=== PATIENT | female | born 1975 | race American Indian/Alaskan Native ===

== ENCOUNTER 2018-11-25 06:32 | Day surgery (SDC) | payer MEDICAID, OTHER ==
[~2018-11-25 06:32] MED LIST: Lactated Ringers 1,000 ML IV SCH; ceFAZolin 2 GM in Premix Bag 1 BAG IV ONE
--- NOTE | 2018-11-25 07:21 | PCM.PREANE ---
Preanesthetic Assessment - Anesthesia/Transfusion/Family Hx Anesthesia History: Prior Anesthesia Without Reaction (endo sedation only, no hx of GA) Family History of Anesthesia Reaction: No Transfusion History: No Prior Transfusion(s) - Review of Systems General: No Symptoms Pulmonary: No Symptoms Cardiovascular: No Symptoms Gastrointestinal: No Symptoms Neurological: No Symptoms - Physical Assessment NPO Status Date: 11/24/18 NPO Status Time: 23:30 Vital Signs: Last Vital Signs Temp Pulse 70 11/25/18 06:38 Resp 18 11/25/18 06:38 BP 149/96 H 11/25/18 06:38 Pulse Ox 100 11/25/18 06:38 Height: 5 ft 4 in Weight: 117.934 kg ASA Class: 2 Mental Status: Alert & Oriented x3 Airway Class: Mallampati = 2 Dentition: Reports: Normal Dentition ROM/Head Extension: Full Lungs: Clear to Auscultation, Normal Respiratory Effort Cardiovascular: Regular Rate, Regular Rhythm - Lab Values: Laboratory Last Values POC Glucose 137 mg/dL (60-110) H 11/25/18 06:58 Urine HCG, Qual NEGATIVE (NEGATIVE) 11/25/18 06:40 - Allergies Allergies/Adverse Reactions: Allergies Allergy/AdvReac Type Severity Reaction Status Date / Time almond oil Allergy Hives Verified 11/22/18 14:16 aspirin Allergy Rash Verified 11/22/18 14:16 Latex, Natural Rubber Allergy Rash Verified 11/22/18 14:16 - Blood Blood Available: No - Anesthesia Plan Pre-Op Medication Ordered: None - Acknowledgements Anesthesia Type Planned: General Anesthesia Pt an Appropriate Candidate for the Planned Anesthesia: Yes Alternatives and Risks of Anesthesia Discussed w Pt/Guardian: Yes Pt/Guardian Understands and Agrees with Anesthesia Plan: Yes Additional Comments: PMH: MO, bmi=45 (has lost 150 # in last 2 years, DM2 glucose 137 today, HbAic down from 9.9 to mid 7s, MEETA - uses CPAP 5-7 hours per night, every night, gerd , hx of anemia, hx of migraine. Has a tear of R rotator cuff. painful when she lays on her R side. Careful positioning. PLAN: get PreAnesthesia Questionnaire HEENT History: Reports: Allergic Rhinitis Other HEENT History: wears glasses, contacts Cardiovascular History: Reports: High Cholesterol, Other (See Below) Other Cardiovascular History: takes Losartan to "protect kidneys", has been off of the HCTZ for awhile- may restart in the future Respiratory History: Reports: Sleep Apnea Other Respiratory History: uses CPAP Gastrointestinal History: Reports: GERD, Hemorrhoids Musculoskeletal History: Reports: Fracture Other Musculoskeletal History: jx of fx foot Neurological History: Reports: Concussion, Other (See Below) Other Neuro History: hx of motion sickness and claustrophobia Psychiatric History: Reports: Other (See Below) Other Psychiatric History: hx of depression in the past- no medications at this time Endocrine/Metabolic History: Reports: Diabetes, Type II, Obesity/BMI 30+ Hematologic History: Reports: Anemia - Past Surgical History GI Surgical History: Reports: Colonoscopy, EGD - SUBSTANCE USE Smoking Status *Q: Former Smoker Tobacco Use Within Last Twelve Months: No Recreational Drug Use History: No - HOME MEDS Home Medications: Home Meds Acetaminophen 2 tab PO Q4H PRN 11/22/18 [History] Alogliptin Benzoate [Alogliptin] 25 mg PO DAILY 11/22/18 [History] Calcium Citrate [Calcitrate (190 MG Calcium)] 950 mg PO BID 11/22/18 [History] Cetirizine HCl [All Day Allergy] 10 mg PO DAILY PRN 11/22/18 [History] Cholecalciferol (Vitamin D3) [Vitamin D3] 1,000 unit PO BID 11/22/18 [History] Ferrous Sulfate 325 mg PO BID 11/22/18 [History] Fish Oil/[place]-3 Fatty Acids [Fish Oil 1,000 MG] 2,000 mg PO BID 11/22/18 [ History] Fluticasone Propionate [Flonase Allergy Relief] 1 - 2 spray NASBOTH DAILY PRN [History] Losartan Potassium 50 mg PO QAM 11/22/18 [History] Norethindrone AC-Eth Estradiol [Norethin-Eth Estrad 1 mg-5 Mcg] 1 tab PO DAILY 11/22/18 [History] Omeprazole 40 mg PO DAILY 11/22/18 [History] Vitamin E 400 unit PO DAILY 11/22/18 [History] atorvaSTATin Calcium [Atorvastatin Calcium] 10 mg PO DAILY 11/22/18 [History] glipiZIDE [Glucotrol XL] 5 mg PO BID 11/22/18 [History] metFORMIN HCl [Metformin ER Osmotic] 1,000 mg PO BID 11/22/18 [History] - CURRENT (IN HOUSE) MEDS Current Meds: Current Medications Lactated Ringer's (Ringers, Lactated) 1,000 mls @ 125 mls/hr IV ASDIRECTED [facility] Last Admin: 11/25/18 06:55 Dose: 125 mls/hr Discontinued Medications Cefazolin Sodium/Dextrose 2 gm (/ Premix) 50 mls @ 100 mls/hr IV ONETIME ONE Stop: 11/25/18 05:29
[2018-11-25] MEDS ORDERED: Lidocaine 2% 5 ML SDV ONE (07:26)
[2018-11-25] MEDS ORDERED: Midazolam 1 MG/ML 2 ML SDV ONE (07:27)
[2018-11-25] MEDS ORDERED: Rocuronium 100 MG/10 ML Syringe ONE (07:27)
[2018-11-25] MEDS ORDERED: fentaNYL 100 MCG/2 ML SDV ONE ×2 (07:27→08:36)
[2018-11-25] MEDS ORDERED: Propofol 200 MG/20 ML SDV ONE (07:27)
[2018-11-25] MEDS ORDERED: Ondansetron 4 MG/2 ML SDV ONE (07:37)
[2018-11-25] MEDS ORDERED: Bupivacaine 25%/EPINEPHrine/PF 30 ML ONE (07:49)
[2018-11-25] MEDS ORDERED: ceFAZolin 1 GM Vial ONE (08:14)
[2018-11-25] MEDS ORDERED: Neostigmine Methylsulfate 1 MG/ML 5 ML Syringe ONE (08:17)
[2018-11-25] MEDS ORDERED: Glycopyrrolate 0.2 MG/ML SDV ONE (08:17)
[2018-11-25] MEDS ORDERED: Gelatin Sponge,Absorbable 12-7 mm Sponge TOP ONE (08:24)
[2018-11-25] MEDS ORDERED: Ketorolac 30 MG/ML SDV ONE (08:33)
[2018-11-25] MEDS ORDERED: 50% Dextrose in Water 50 ML Syringe IVPUSH PRN (08:57)
[2018-11-25] MEDS ORDERED: Albuterol 0.083% 2.5 MG/3 ML Neb Soln NEB PRN (08:57)
[2018-11-25] MEDS ORDERED: Naloxone 0.4 MG/ML Syringe IVPUSH PRN (08:57)
[2018-11-25] MEDS ORDERED: EPINEPHrine 1:10,000 1 MG/10 ML Syringe IVPUSH PRN (08:57)
[2018-11-25] MEDS ORDERED: Atropine 0.1 MG/ML 10 ML Syringe IVPUSH PRN ×2 (08:57)
--- NOTE | 2018-11-25 08:59 | PCM.OPNOTE ---
- General Post-Op/Procedure Note Date of Surgery/Procedure: 11/25/18 Operative Procedure(s): hemorrhoidectomy Findings: large complex hemorrhoid at 12 oclock and simple skin tag at 6 oclock when prone , resected; [id number] Pre Op Diagnosis: hemorrhoid Post-Op Diagnosis: Same Anesthesia Technique: General ET Tube Primary Surgeon: Efrain Salazar Complications: None Condition: Good
[2018-11-25] MEDS ORDERED: Acetaminophen/oxyCODONE 325-5 MG Tab PO PRN (09:04)
[2018-11-25] MEDS: fentaNYL 100 MCG/2 ML SDV IVPUSH PRN ×2 (09:06→09:13)
[2018-11-25] MEDS ORDERED: HYDROmorphone 2 MG/ML Syringe ONE (09:24)
[2018-11-25] MEDS: HYDROmorphone 2 MG/ML Syringe IVPUSH ONE ×2 (09:27→09:35)
--- NOTE | 2018-11-25 09:59 | PCM.POSTAN ---
POST ANESTHESIA ASSESSMENT - MENTAL STATUS Mental Status: Alert, Oriented - VITAL SIGNS Vital Signs: Last Vital Signs Temp 97.9 F 11/25/18 08:50 Pulse 68 11/25/18 09:50 Resp 10 L 11/25/18 09:50 BP 103/53 L 11/25/18 09:50 Pulse Ox 95 11/25/18 09:50 - RESPIRATORY Respiratory Status: Respiratory Rate WNL, Airway Patent, O2 Saturation Stable - CARDIOVASCULAR CV Status: Pulse Rate WNL, Blood Pressure Stable - GASTROINTESTINAL GI Status: No Symptoms - POST OP HYDRATION Hydration Status: Adequate & Stable
[2018-11-25] MEDS ORDERED: Haloperidol Lactate 5 MG/ML SDV IM ONE (10:19)
[2018-11-25] MEDS ORDERED: Ketorolac 30 MG/ML SDV IVPUSH ONE (10:53)
--- NOTE | 2018-11-25 11:17 | PCM48HPAN ---
Post Anesthesia Note - EVALUATION WITHIN 48HRS OF ANESTHETIC Vital Signs in Normal Range: Yes Patient Participated in Evaluation: Yes Respiratory Function Stable: Yes Airway Patent: Yes Cardiovascular Function Stable: Yes Hydration Status Stable: Yes Pain Control Satisfactory: Yes Nausea and Vomiting Control Satisfactory: Yes Mental Status Recovered: Yes Vital Signs: Last Vital Signs Temp 36.0 C 11/25/18 09:59 Pulse 85 11/25/18 10:45 Resp 16 11/25/18 10:45 BP 134/71 11/25/18 10:45 Pulse Ox 95 11/25/18 10:45 - COMMENTS/OBSERVATIONS Free Text/Narrative:: Pt given written copy of "Discharge Instructions for Patient with Obstructive Sleep Apnea". Pt reminded to use CPAP even while napping during the day. Daughter at bedside states she lives with mother and will be present.
--- NOTE | 2018-11-25 11:42 | OR ---
SURGEON: Efrain Salazar MD DATE OF PROCEDURE: 11/25/2018 PREOPERATIVE DIAGNOSIS: Hemorrhoids. POSTOPERATIVE DIAGNOSIS: Hemorrhoids. PROCEDURE PERFORMED: Hemorrhoidectomy. PRIMARY SURGEON: Efrain Salazar MD. COMPLICATIONS: None. FINDINGS: Large complex hemorrhoid at 12 o'clock and a simple anal tag at 6 o'clock when prone and hemorrhoid and the skin tag at 6 o'clock when prone, both are resected. DESCRIPTION OF PROCEDURE: The patient was taken to the operating room and placed in a supine position. Upon induction of general endotracheal anesthesia, the patient was repositioned into a jackknife position. Tapes were used to mount the buttock to help in exposure. Time-out was being called, the patient identified, procedure identified, 2 g IV Ancef given. Procedure then started. We first started with three-finger dilatation and can only do two fingers. The patient is too tight to distend and no stool was seen. Speculum examination, final vision, had one large hemorrhoid, complex hemorrhoid, internal-external at 12 o'clock and then two more small ones at about 2 o'clock and 4 o'clock. At 6 o'clock, right in front of the vagina, there is a skin tag that has been irritating the patient a lot and requested to remove. Upon finishing examination, does not seem to have any other disease. Decided to remove the 12 o'clock large complex hemorrhoid and the skin tag at 6 o'clock. Attention first went to the hemorrhoid at 12 o'clock. Using a 3-0 catgut, a stitch was placed at the apex of the mucosa exit of the hemorrhoid for hemostasis and then hemorrhoid was grabbed by a Isabel and transected with a 15 scalpel. Couple of areas, some bleeding vessel. Hemostasis achieved by using electrocautery. The mucosal defect was closed by the use of 3-0 chromic locking stitches for hemostasis. Upon finish, it was bone dry. Attention then turned to the skin tag. Skin tag was pulled up by hemostat and transected by using a 15 scalpel and the mucosa defect was closed by the use of simple interrupted 3-0 chromic. Upon finish, again it was bone dry and good hemostasis. One piece of Gelfoam with lidocaine cream was inserted in the rectum for hemostasis. Local anesthetic was injected. The patient was then transferred to supine position and taken to recovery room in hemodynamically stable condition. Dr. Salazar was present through the whole procedure. MELODY / PHONG /[id number] MTDD
== END 2018-11-25 11:30 | disposition home or self-care (01) ==
LOC: MW.SDS 06:32
PROVIDERS: ATTEND Surgery
DX: K64.8 Other hemorrhoids (principal); K64.4 Residual hemorrhoidal skin tags; G43.909 Migraine, unspecified, not intractable, without status migrainosus; E11.9 Type 2 diabetes mellitus without complications; Z91.018 Allergy to other foods; Z88.6 Allergy status to analgesic agent; Z91.040 Latex allergy status; Z79.899 Other long term (current) drug therapy; Z79.84 Long term (current) use of oral hypoglycemic drugs
CPT/HCPCS: 11200; 46260; 81025; 82962; J0690; J1170; J1630; J1885; J2001; J2250; J2405; J2704; J3010; J3490; J7120